=== PATIENT | male | born 1980 ===

== ENCOUNTER 2021-07-06 19:57 | Emergency (ER) | payer SELFPAY ==
--- NOTE | 2021-07-06 21:27 | Emergency Department Report ---
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 Patient presented to the ER complaining of left-sided chest pain, sharp in nature with no radiation. Patient is also stating that he is having shortness of breath. Patient stated that he woke wesley and there is a lot of spray going on on the floor. Pat ient denied any past medical history. He also denied any fever or chills. No abdominal pain, nausea or vomiting. MD Complaint: chest pain -: hour(s) (2) Onset: during exertion Quality: sharp - Related Data Allergies Allergy/AdvReac Type Severity Reaction Status Date / Time No Known Allergies Allergy Unverified 07/07/21 00:21 Heart Score - HEART Score History: Slightly suspicious EKG: Normal Age: < 45 Risk factors: No known risk factors Troponin: < normal limit HEART Score: 0 - EKG Read Time Time EKG Completed: 19:51 EKG Read Time: 19:51 - Critical Actions Critical Actions: 0-3 pts:0.9-1.7%risk of adverse cardiac event.Candidate for discharge ED Review of Systems ROS: Stated complaint: CHEST PAIN Other details as noted in HPI Comment: All other systems reviewed and negative Constitutional: denies: chills, fever Respiratory: shortness of breath, SOB with exertion, SOB at rest. denies: cough, wheezing Cardiovascular: chest pain, palpitations Gastrointestinal: denies: abdominal pain, nausea, vomiting, diarrhea, constipation, hematemesis, hematochezia Musculoskeletal: denies: back pain Neurological: denies: headache, weakness, numbness, paresthesias, confusion ED Past Medical Hx - Past Medical History Previous Medical History?: No - Surgical History Past Surgical History?: No - Social History Smoking Status: Never Smoker ED Physical Exam - General Limitations: No Limitations General appearance: alert, in no apparent distress - Head Head exam: Present: atraumatic, normocephalic, normal inspection - Eye Eye exam: Present: normal appearance - ENT ENT exam: Present: normal exam, normal orophraynx, mucous membranes moist - Neck Neck exam: Present: normal inspection, full ROM. Absent: tenderness, meningismus - Respiratory Respiratory exam: Present: decreased breath sounds. Absent: respiratory distress, wheezes, rales, rhonchi - Cardiovascular Cardiovascular Exam: Present: tachycardia - GI/Abdominal GI/Abdominal exam: Present: soft, normal bowel sounds. Absent: distended, tenderness, guarding, rebound, rigid, organomegaly, mass, bruit, pulsatile mass, hernia - Extremities Exam Extremities exam: Present: normal inspection, full ROM, normal capillary refill. Absent: tenderness, pedal edema, joint swelling, calf tenderness - Back Exam Back exam: Present: normal inspection, full ROM. Absent: CVA tenderness (R), CVA tenderness (L) - Neurological Exam Neurological exam: Present: alert, oriented X3, CN II-XII intact, normal gait, reflexes normal. Absent: motor sensory deficit - Psychiatric Psychiatric exam: Present: normal mood, anxious - Skin Skin exam: Present: warm, intact, normal color ED Course Vital Signs 07/06/21 07/07/21 07/07/21 20:07 00:46 00:51 Pulse Rate 120 H 84 Respiratory 17 15 Rate Blood Pressure 136/86 Blood Pressure 121/74 [Right] O2 Sat by Pulse 99 99 99 Oximetry ED Medical Decision Making - Lab Data Result diagrams: 07/06/21 21:34 07/06/21 21:34 - EKG Data -: EKG Interpreted by Me EKG shows normal: sinus rhythm Rate: normal - EKG Data Interpretation: no acute changes - Radiology Data Radiology results: report reviewed - Medical Decision Making 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 Patient presented to the ER complaining of left-sided chest pain, sharp in nature with no radiation. Patient is also stating that he is having shortness of breath. Patient stated that he woke wesley and there is a lot of spray going on on the floor. Patient denied any past medical history. He also denied any fever or chills. No abdominal pain, nausea or vomiting. EKG showed no ST elevation. Labs reviewed and showed slight elevated troponin however patient creatinine is 2.3. I believe this is most likely from that tai ent does not have any risk factor. Chest pain is atypical. Repeated troponin is negative. Chest x-ray is unremarkable. Labs show leukocytosis however CT chest showed no evidence of Pneumonia. I believe patient symptom is most likely related to his construction work and most likely chemical pneumonitis However patient strongly advised to follow-up with his primary care physician in the next 2 to 3 days for outpatient cardiac work-up including stress test. Patient also advised to return to the ER if he develop any new symptoms. Critical care attestation.: If time is entered above; I have spent that time in minutes in the direct care of this critically ill patient, excluding procedure time. ED Disposition Clinical Impression: Acute chest pain, Acute bronchitis, Chronic kidney disease Disposition: HOME / SELF CARE / HOMELESS Is pt being admited?: No Condition: Stable Instructions: Chest Pain (ED), Acute Bronchitis (ED), Chronic Kidney Disease, Adult, [id number], Nonspecific Chest Pain, Adult, Acute Bronchitis, Adult Referrals: FRANCO HUTTON MD [Staff Physician] - 3-5 Days
[2021-07-06 22:02] LABS: Basophils % (Auto) 0.1 % (0.0-1.8); Hematocrit 52.5 % (35.5-45.6); Hemoglobin 17.9 gm/dl (11.8-15.2); Lymphocytes # (Auto) 0.8 K/mm3 (1.2-5.4); Lymphocytes % (Auto) 5.3 % (13.4-35.0); Mean Corpuscular HGB Conc 34 % (32-34); Mean Corpuscular Volume 98 fl (84-94); Monocytes # (Auto) 1.1 K/mm3 (0.0-0.8); Monocytes % (Auto) 7.6 % (0.0-7.3); Platelet Count 280 K/mm3 (140-440); Red Blood Count 5.34 M/mm3 (3.65-5.03); Red Cell Distribution Width 12.8 % (13.2-15.2)
[2021-07-06 22:20] LABS: Calcium 11.4 mg/dL (8.4-10.2)
--- NOTE | 2021-07-06 22:53 | XRay Report ---
CHEST 2 VIEWS INDICATION / CLINICAL INFORMATION: Chest Pain. COMPARISON: None available. FINDINGS: SUPPORT DEVICES: None. HEART / MEDIASTINUM: No significant abnormality. LUNGS / PLEURA: No significant pulmonary or pleural abnormality. No pneumothorax. BONES: No significant osseous abnormality. ADDITIONAL FINDINGS: No significant additional findings. IMPRESSION: 1. No active cardiopulmonary disease. Signer Name: Arnie Dutta II, MD Signed: 07/06/2021 10:48 PM Workstation Name: [id number]
[2021-07-06 23:13] LABS: Chol/HDL Ratio 2.83 %
--- NOTE | 2021-07-07 00:30 | Cat Scan Report ---
CT CHEST WITHOUT CONTRAST INDICATION / CLINICAL INFORMATION: Patient complains of chest pain with S.O.B.. TECHNIQUE: Axial CT images were obtained through the chest without contrast. All CT scans at this [facility] ation are performed using CT dose reduction for ALARA by means of automated exposure control. COMPARISON: None available. FINDINGS: CHEST LOWER NECK: Soft tissues and musculature of the lower neck demonstrate no significant abnormality. Th e thyroid demonstrates no significant abnormality. THORACIC AORTA: No significant abnormality. PULMONARY ARTERY:No significant abnormality. HEART: No significant abnormality. CORONARY ARTERY CALCIFICATION: Absent -- None. MEDIASTINUM / LUZ: No significant abnormality. ESOPHAGUS: No significant abnormality. LYMPH NODES: No adenopathy demonstrated within the axilla, luz, or mediastinum. LUNGS: No acute air space or interstitial disease. PLEURA: No pleural effusion. No pneumothorax. THORACIC SOFT TISSUES: No significant abnormality of the chest wall or upper thoracic musculature. OSSEOUS STRUCTURES: No significant abnormality of included osseous structures. UPPER ABDOMEN: No significant abnormality. ADDITIONAL CHEST FINDINGS: None. IMPRESSION: 1. No significant abnormality. Signer Name: Arnie Dutta II, MD Signed: 07/07/2021 12:26 AM Workstation Name: [id number]
[2021-07-07] MEDS ORDERED: ASPIRIN 81 MG TAB CHEW PO ONE (00:45)
[2021-07-07 01:41] LABS: INR 0.85 (0.87-1.13)
[2021-07-07 01:42] LABS: Partial Thromboplastin Time 31.5 Sec. (24.2-36.6)
[2021-07-07 04:03] VITALS: BP 118/65
--- NOTE | 2021-07-07 09:07 | Electrocardiograph Report ---
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
== END 2021-07-07 03:30 | disposition home or self-care (01) ==
LOC: ED 19:57
DX: J20.9 Acute bronchitis, unspecified (principal); R07.89 Other chest pain; N18.9 Chronic kidney disease, unspecified; Z79.899 Other long term (current) drug therapy
CPT/HCPCS: 36415; 71046; 71250; 80048; 80061; 84484; 85025; 85379; 85610; 85730; 93005; 99285